=== PATIENT | male | born 2000 | race Caucasian/White ===

== ENCOUNTER → 2020-11-19 | Outpatient (CLI) | payer OTHER ==
[~2020-11-19] MED LIST: AMOXICILLIN500 MG PO; MOTRIN CHI100 MG/5 M PO; MOTRIN400 MG PO; ZYRTEC10 MG PO
== END | disposition home or self-care (01) ==
LOC: COVID19 16:23
PROVIDERS: ATTEND Internal Medicine
DX: U07.1 COVID-19 (principal)

== ENCOUNTER 2022-01-18 12:57 | Emergency (ER) | payer BC ==
[~2022-01-18] VITALS: Ht 185.4 cm; Wt 117.9 kg
[2022-01-18] MEDS ORDERED: AMOXICILLIN500 M2 PO (17:47)
== END 2022-01-18 18:10 | disposition home or self-care (01) ==
LOC: ED 12:57
DX: J02.9 Acute pharyngitis, unspecified (principal); F17.200 Nicotine dependence, unspecified, uncomplicated